=== PATIENT | male | born 1950 | race Caucasian/White ===

== ENCOUNTER 2020-10-23 16:04 | Inpatient (IN) | payer OTHER ==
[2020-10-23 16:51] LABS: BASO % 0.8 % (0-2.0); EOS % 0.3 % (0-4.5); HEMATOCRIT 34.9 % (35.4-49); HEMOGLOBIN 11.7 GM/dL (11.7-16.9); LYMPH % 15.1 % (8-40); MCH 30.1 pg (25.7-33.7); MCHC 33.6 g/dl (32.0-35.9); MEAN CELL VOLUME 89.6 fl (80-96); MEAN PLT VOLUME 8.6 fl (7.5-11.1); MONO % 4.7 % (3.8-10.2); NEUT % 79.1 % (42.8-82.8); PLATELET COUNT 387 K/MM3 (134-434); RBC 3.89 M/mm3 (4.00-5.60); RDW 13.9 % (11.9-15.9); WHITE BLOOD COUNT 13.5 K/mm3 (4.0-10.0)
[2020-10-23 16:57] LABS: INR 1.08 (0.83-1.09)
[2020-10-23 17:00] LABS: ACTIVATED PTT 30.6 SECONDS (25.2-36.5)
[2020-10-23 17:06] LABS: CHLORIDE 100 mmol/L (98-107); POTASSIUM 4.4 mmol/L (3.5-5.1); SODIUM 135 mmol/L (136-145)
[2020-10-23 17:09] LABS: ALBUMIN 4.1 g/dl (3.4-5.0); ANION GAP 8 MMOL/L (8-16); BLOOD UREA NITROGEN 18.8 mg/dL (7-18); CALCIUM 9.6 mg/dL (8.5-10.1); CO2 27 mmol/L (21-32); GLUCOSE,RANDOM 204 mg/dL (74-106)
[2020-10-23 17:11] LABS: CHOLESTEROL 170 mg/dL (50-200)
[2020-10-23 17:12] LABS: LDL CHOLESTEROL (ONLY SJRH) 104 mg/dL (5-100); SGOT/AST 17 U/L (15-37); SGPT/ALT 30 U/L (13-61); TRIGLYCERIDES 127 mg/dL (0-150)
[2020-10-23 17:14] LABS: BILIRUBIN,TOTAL 0.4 mg/dL (0.2-1); HDL CHOLESTEROL 48 mg/dL (40-60)
[2020-10-23 17:15] LABS: ALK PHOS 81 U/L (45-117)
[2020-10-23] MEDS ORDERED: FAMOTIDINE 20 MG/50 ML IVPB 20 MG/50 ML MG IVPB ONE ×2 (17:49→18:58)
[2020-10-23] MEDS ORDERED: ONDANSETRON 4 MG/2 ML VIAL IVPUSH ONE (17:49)
[2020-10-23] MEDS ORDERED: LACTATED RINGERS SOLUTION 1000 ML INFUS.BAG IV ONE (17:49)
[2020-10-23] MEDS ORDERED: MAG HYDROX/AL HYDROX/SIMETH 30 ML UNIT-DOSE CUP PO ONE (17:49)
[2020-10-23 18:06] LABS: LIPASE 250 U/L (73-393)
[2020-10-23] MEDS ORDERED: ONDANSETRON 4 MG/2 ML VIAL ONE (18:58)
[2020-10-23] MEDS ORDERED: MAG HYDROX/AL HYDROX/SIMETH 30 ML UNIT-DOSE CUP ONE (18:58)
[2020-10-23 21:36] VITALS: BMI 27.4
[2020-10-23] MEDS ORDERED: ONDANSETRON 4 MG TABLET PO PRN (22:35)
[2020-10-23] MEDS ORDERED: ASPIRIN 81 MG CHEWABLE TABLETS PO STA (23:20)
[2020-10-24 07:03] LABS: BASO % 0.9 % (0-2.0); EOS % 1.6 % (0-4.5); HEMATOCRIT 31.6 % (35.4-49); LYMPH % 26.4 % (8-40); MCH 30.9 pg (25.7-33.7); MCHC 34.8 g/dl (32.0-35.9); MEAN CELL VOLUME 88.7 fl (80-96); MEAN PLT VOLUME 8.5 fl (7.5-11.1); MONO % 8.5 % (3.8-10.2); NEUT % 62.6 % (42.8-82.8); PLATELET COUNT 336 K/MM3 (134-434); RBC 3.56 M/mm3 (4.00-5.60); RDW 14.2 % (11.9-15.9); WHITE BLOOD COUNT 10.6 K/mm3 (4.0-10.0)
[2020-10-24] MEDS: INSULIN SLIDING SCALE (NOVOLOG) 1 VIAL SQ SCH ×4 (07:07→22:09)
[2020-10-24 07:40] LABS: ALBUMIN 3.4 g/dl (3.4-5.0); BLOOD UREA NITROGEN 17.7 mg/dL (7-18); CALCIUM 9.3 mg/dL (8.5-10.1)
[2020-10-24 07:43] LABS: CREATININE 0.9 mg/dL (0.55-1.3)
[2020-10-24 07:44] LABS: PHOSPHOROUS 4.6 mg/dL (2.5-4.9)
[2020-10-24 07:45] LABS: BILIRUBIN,TOTAL 0.3 mg/dL (0.2-1); TOT PROT 6.6 g/dl (6.4-8.2)
[2020-10-24] MEDS: ASPIRIN COATED 81 MG TABLET.EC PO SCH (09:29)
[2020-10-24] MEDS: ENOXAPARIN NA (PORCINE) 40 MG/0.4 ML DISP.SYRIN SQ SCH (09:29)
[2020-10-24] MEDS ORDERED: ATORVASTATIN CA 40 MG TABLET (FP) PO SCH (22:00)
[2020-10-25] MEDS: INSULIN SLIDING SCALE (NOVOLOG) 1 VIAL SQ SCH ×2 (06:33→11:29)
[2020-10-25 07:02] LABS: BASO % 0.9 % (0-2.0); EOS % 1.9 % (0-4.5); HEMOGLOBIN 11.1 GM/dL (11.7-16.9); LYMPH % 29.1 % (8-40); MCH 30.8 pg (25.7-33.7); MCHC 34.6 g/dl (32.0-35.9); MEAN PLT VOLUME 8.2 fl (7.5-11.1); MONO % 7.8 % (3.8-10.2); NEUT % 60.3 % (42.8-82.8); PLATELET COUNT 325 K/MM3 (134-434); RBC 3.59 M/mm3 (4.00-5.60); RDW 13.6 % (11.9-15.9); WHITE BLOOD COUNT 8.8 K/mm3 (4.0-10.0)
[2020-10-25 07:30] LABS: ALBUMIN 3.7 g/dl (3.4-5.0); BLOOD UREA NITROGEN 16.8 mg/dL (7-18); MAGNESIUM 2.4 mg/dL (1.8-2.4)
[2020-10-25 07:33] LABS: CREATININE 0.7 mg/dL (0.55-1.3)
[2020-10-25 07:35] LABS: BILIRUBIN,TOTAL 0.3 mg/dL (0.2-1); TOT PROT 7.2 g/dl (6.4-8.2)
[2020-10-25] MEDS: ENOXAPARIN NA (PORCINE) 40 MG/0.4 ML DISP.SYRIN SQ SCH (09:06)
[2020-10-25] MEDS: ASPIRIN COATED 81 MG TABLET.EC PO SCH (09:06)
[2020-10-25] MEDS ORDERED: HYDROCHLOROTHIAZIDE 25 MG TABLET (FP) PO SCH (10:00)
[2020-10-25] MEDS ORDERED: LISINOPRIL 10 MG TABLET PO SCH (10:00)
[2020-10-25] MEDS ORDERED: ASPIRIN 325 MG TABLET PO SCH (10:00)
[2020-10-25 10:45] VITALS: BP 136/67; PULSE 74; TEMP 98.4
== END 2020-10-25 14:02 | disposition home or self-care (01) | DRG 66 ==
LOC: JER 16:04 → JERBED 17:33 → J4W 20:15
PROVIDERS: ADMIT Hospitalist; ATTEND Nurse Practitioner Acute Care
DX: I63.9 Cerebral infarction, unspecified (principal); I10 Essential (primary) hypertension; E78.5 Hyperlipidemia, unspecified; E11.9 Type 2 diabetes mellitus without complications; R29.701 NIHSS score 1; R20.2 Paresthesia of skin
CPT/HCPCS: 36415; 70450-TC; 70551-TC; 80053; 80061; 82550; 82962; 83036; 83690; 83721; 83735; 84100; 84443; 84484; 85025; 85610; 85730; 93005; 93010; 93306-TC; 93880-TC; 97116-GP; 97161-GP; 99285-25; C9803; U0003

== ENCOUNTER 2023-01-19 04:33 | Day surgery (SDC) | payer OTHER ==
[2023-01-15 12:08] VITALS: BMI 26.9
[2023-01-19 14:34] VITALS: TEMP 97.1
[2023-01-19 15:18] VITALS: BP 178/81; PULSE 62; RESP 18
== END 2023-01-19 15:15 | disposition home or self-care (01) ==
LOC: JASU-ENDO 04:33
PROVIDERS: ATTEND Student in an Organized Health Care Education/Training Program
PROC: 0DB78ZX Excision of Stomach, Pylorus, Via Natural or Artificial Opening Endoscopic, Diagnostic (ICD-10-PCS; 2023-01-19)
PROC: 0DB68ZX Excision of Stomach, Via Natural or Artificial Opening Endoscopic, Diagnostic (ICD-10-PCS; principal; 2023-01-19 15:00)
DX: K29.50 Unspecified chronic gastritis without bleeding (principal); E11.9 Type 2 diabetes mellitus without complications
CPT/HCPCS: 82962; 88305-TC; 88342-TC

== ENCOUNTER 2024-01-03 10:04 | Emergency (ER) | payer OTHER ==
[2024-01-03 10:14] VITALS: RESP 18; TEMP 98.2; BMI 26.5
[2024-01-03 13:07] LABS: VENOUS BASE EXCESS -1.4 mmol/L (-2-2); VENOUS O2 SATURATION 61.9 % (70-80); VENOUS PCO2 41.1 mmHg (38-52); VENOUS PH 7.378 (7.310-7.410)
[2024-01-03 13:12] LABS: BASO % 0.7 % (0-2.0); EOS % 1.5 % (0-4.5); HEMATOCRIT 29.2 % (35.4-49); LYMPH % 22.1 % (8-40); MEAN CELL VOLUME 85.3 fl (80-96); MEAN PLT VOLUME 7.7 fl (7.5-11.1); MONO % 7.7 % (3.8-10.2); PLATELET COUNT 368 10^3/uL (134-434); RBC 3.43 M/mm3 (4.00-5.60); RDW 13.7 % (11.9-15.9); WHITE BLOOD COUNT 9.2 K/mm3 (4.0-10.0)
[2024-01-03 13:29] LABS: POTASSIUM 4.5 mmol/L (3.5-5.1)
[2024-01-03 13:31] LABS: CALCIUM 8.7 mg/dL (8.5-10.1)
[2024-01-03 13:32] LABS: ALBUMIN 3.1 g/dl (3.4-5.0); BLOOD UREA NITROGEN 11.2 mg/dL (7-18)
[2024-01-03 13:35] LABS: CREATININE 0.6 mg/dL (0.55-1.3); PHOSPHOROUS 3.8 mg/dL (2.5-4.9)
[2024-01-03 13:36] LABS: BILIRUBIN,TOTAL 0.2 mg/dL (0.2-1); TOT PROT 6.4 g/dl (6.4-8.2)
[2024-01-03 18:28] VITALS: BP 156/73; PULSE 63
== END 2024-01-03 18:30 | disposition home or self-care (01) ==
LOC: JER 10:04
DX: R10.32 Left lower quadrant pain (principal); K52.9 Noninfective gastroenteritis and colitis, unspecified; R50.9 Fever, unspecified; R11.2 Nausea with vomiting, unspecified
CPT/HCPCS: 36415; 74177-TC; 80053; 82803; 82962; 83735; 84100; 84484; 85025; 93005; 93010; 99285-25